=== PATIENT | male | born 1975 | race Caucasian/White ===

== ENCOUNTER 2021-03-01 02:48 | Emergency (ER) | payer OTHER ==
[2021-03-01] MEDS ORDERED: Aspirin Chewable 81 MG TAB ONE (03:01)
[2021-03-01] MEDS ORDERED: Metoprolol Tartrate 5 MG/5 ML VIAL ONE ×3 (03:01→03:22)
[2021-03-01] MEDS ORDERED: Heparin 25,000 units/D5W 500 ML ONE (03:05)
[2021-03-01] MEDS ORDERED: Ondansetron PF 4 MG/2 ML Vial ONE (03:05)
[2021-03-01] MEDS ORDERED: Heparin 5,000 UNITS/ML VIAL ONE (03:05)
[2021-03-01 03:06] LABS: #Basophils 0.2 thou/uL (0.0-0.2); #Eosinphils 0.2 thou/uL (0.0-0.7); #Monocytes 0.6 thou/uL (0.11-0.59); #Neutrophils 8.9 thou/uL (1.40-6.50); %Basophils 1.5 % (0.0-1.0); %Eosinophils 1.2 % (0.0-10.0); %Lymphocytes 23.4 % (21.0-51.0); %Monocytes 4.7 % (0.0-10.0); %Neutrophils 69.2 % (42.0-75.0); Hemoglobin 18.1 g/dL (14.0-18.0); Mean Corpuscular Hemoglobin 28.5 pg (27.0-31.0); Mean Corpuscular Volume 89.1 fL (78.0-98.0); Mean Platelet Volume 8.5 fL (7.4-10.4); Platelet Count 249 thou/uL (130-400); RBC Distribution Width 13.1 % (11.5-14.5); Red Blood Cell (RBC) Count 6.35 mill/uL (4.70-6.10); White Blood Cell (WBC) Count 12.9 thou/uL (4.8-10.8)
[2021-03-01] MEDS ORDERED: Morphine 2 MG/ML VIAL ONE ×2 (03:11→03:38)
[2021-03-01] MEDS ORDERED: diphenhydrAMINE 50 MG/ML VIAL ONE (03:12)
[2021-03-01 03:15] LABS: INR-International Normal Ratio 0.8; PTT 24.1 sec (22.9-36.1); Prothrombin Time 11.7 sec (12.0-14.7)
[2021-03-01 03:25] LABS: ALT (SGPT) 51 U/L (8-55); AST (SGOT) 16 U/L (5-34); Albumin 4.4 g/dL (3.5-5.0); Alkaline Phosphatase 126 U/L (40-110); Anion Gap 23 mmol/L (10-20); BUN (Urea Nitrogen) 11 mg/dL (8.9-20.6); Bilirubin, Total 0.3 mg/dL (0.2-1.2); CK (CPK) 45 U/L (30-200); Calc. Creatinine Clearance 0 mL/min (70-130); Calcium 8.9 mg/dL (7.8-10.44); Carbon Dioxide 21 mmol/L (22-29); Chloride 102 mmol/L (98-107); Globulin 2.8 g/dL (2.4-3.5); Glucose 393 mg/dL (70-105); Potassium 3.9 mmol/L (3.5-5.1); Protein, Total 7.2 g/dL (6.0-8.3); Sodium 142 mmol/L (136-145)
[2021-03-01] MEDS ORDERED: Nitroglycerin 50 MG/250 ML BOT 250 ML ONE (03:26)
[2021-03-01 03:31] LABS: CKMB 0.4 ng/mL (0-6.6)
== END 2021-03-01 03:46 | disposition short-term general hospital (02) ==
LOC: MADERS 02:48
DX: I21.19 ST elevation (STEMI) myocardial infarction involving other coronary artery of inferior wall (principal); E11.9 Type 2 diabetes mellitus without complications; F17.200 Nicotine dependence, unspecified, uncomplicated; Z79.84 Long term (current) use of oral hypoglycemic drugs; Z79.899 Other long term (current) drug therapy
CPT/HCPCS: 36416; 71045; 80053; 82550; 82553; 84484; 85025; 85610; 85730; 93005; 94760; 96365; 96374; 96375; J1200; J1644; J2270; J2405